=== PATIENT | female | born 2000 | race Caucasian/White ===

== ENCOUNTER 2022-04-11 19:40 | Emergency (ER) | payer MEDICAID ==
[~2022-04-11] VITALS: Ht 172.7 cm; Wt 58.1 kg
--- NOTE | 2022-04-11 20:40 | NUR ---
BIBSELF C/O FLU LIKE SYMPTOMS FELT SICK FOR THE PAST TWO WEEKS TESTED COVID (-) TODAY. PLACED IN RM 19. VITALS CHECKED
--- NOTE | 2022-04-11 21:00 | NUR ---
PATIENT IS ANXIOUS, SHE IS CRYING. CLAIMED THAT SHE IS CLAUSTROPHOEBIC AND WANT TO SEE MD IMMEDIATELY. SHE SAID SHE CANNOT STAND BEING IN CLOSED ROOM.MD MADE AWARE.
[2022-04-11] MEDS ORDERED: LIDOCAINE VISCOUS 2% UD 15 ML UDC MM ONE (21:30)
[2022-04-11] MEDS ORDERED: MAG HYDROX/AL HYDROX/SIMETH 30 ML UDC PO ONE (21:30)
[2022-04-11] MEDS ORDERED: ONDANSETRON 4 MG TAB.RAPDIS SL ONE (21:30)
[2022-04-11] MEDS ORDERED: KETOROLAC TROMETHAMINE INJ 60 MG/2 ML VIAL IM ONE (21:30)
--- NOTE | 2022-04-11 21:31 | NUR ---
COVID AND FLU COLLECTED AND SENT TO LAB
[2022-04-11] MEDS ORDERED: LIDOCAINE VISCOUS 2% UD 15 ML UDC ONE (21:51)
[2022-04-11] MEDS ORDERED: ONDANSETRON 4 MG TAB.RAPDIS ONE (21:51)
[2022-04-11] MEDS ORDERED: MAG HYDROX/AL HYDROX/SIMETH 30 ML UDC ONE (21:51)
[2022-04-11] MEDS ORDERED: KETOROLAC TROMETHAMINE INJ 30 MG/ML VIAL ONE (21:51)
[2022-04-11] MEDS ORDERED: OMEP40CA21 PO (21:54)
[2022-04-11] MEDS ORDERED: ONDA4TAB5 PO (21:54)
--- NOTE | 2022-04-11 21:59 | NUR ---
Patient discharged to home in stable condition. Written and verbal after care instructions given. Patient verbalizes understanding of instruction.
[2022-04-11 22:03] VITALS: BP 123/64
== END 2022-04-11 22:03 | disposition home or self-care (01) ==
LOC: ER 19:46
DX: K29.70 Gastritis, unspecified, without bleeding (principal); R68.89 Other general symptoms and signs; Z20.822 Contact with and (suspected) exposure to COVID-19
CPT/HCPCS: 99283; 87426; 96372; 87804; J1885; Q0162; C9803

== ENCOUNTER 2022-11-07 20:29 | Emergency (ER) | payer BC, OTHER ==
[~2022-11-07] VITALS: Ht 170.2 cm; Wt 59.9 kg
[~2022-11-07 20:29] MED LIST: OMEP40CA21 PO; ONDA4TAB5 PO
--- NOTE | 2022-11-07 21:12 | NUR ---
CALLED TO ER, LEFT AFTER TRIAGE
--- NOTE | 2022-11-07 21:30 | NUR ---
CALLED TO ER, LEFT AFTER TRIAGE.
[2022-11-07 22:49] VITALS: BP 107/59
== END 2022-11-07 22:50 | disposition left against medical advice (07) ==
LOC: ER 20:35
DX: R05.9 Cough, unspecified (principal); J02.9 Acute pharyngitis, unspecified; Z53.21 Procedure and treatment not carried out due to patient leaving prior to being seen by health care provider

== ENCOUNTER 2025-02-03 14:16 | Emergency (ER) | payer BC, OTHER ==
[~2025-02-03] VITALS: Ht 167.6 cm; Wt 56.7 kg
[2025-02-03] MEDS ORDERED: KETOROLAC TROMETHAMINE 15 MG/ML VIAL ONE ×2 (14:53→17:58)
[2025-02-03 14:58] LABS: PLATELET COUNT (AUTO) 196 K/uL (150-450); RED BLOOD CELL COUNT(AUTO) 4.59 MIL/uL (4.0-5.2); RED CELL DISTRIBUTION WIDTH 13.1 % (11.5-15.0); WHITE BLOOD COUNT (AUTO) 10.8 K/uL (4.3-11.0)
[2025-02-03 15:03] LABS: CALCIUM, SERUM 8.5 mg/dL (8.5-10.1); CREATININE 0.7 mg/dL (0.6-1.3); SODIUM SERUM 134.0 mmol/L (136-145); UREA NITROGEN, BLOOD 8.0 mg/dL (7-18)
[2025-02-03] MEDS: IV NS 0.9% 1,000 ML BAG IV ONE (15:07)
[2025-02-03] MEDS: PIPERACILLIN /TAZOBACTAM 3.375 G in IV D5W 50 ML IV ONE (15:08)
[2025-02-03] MEDS ORDERED: IOHEXOL-300 100 ML VIAL IV ONE (15:08)
[2025-02-03] MEDS ORDERED: IV NS 0.9% 250 ML IV ONE (15:09)
[2025-02-03] MEDS: KETOROLAC TROMETHAMINE 15 MG/ML VIAL IV ONE ×2 (15:26→18:01)
[2025-02-03 15:33] LABS: APPEARANCE,URINE CLEAR (CLEAR); BLOOD, URINE Trace-intact Ery/uL (NEGATIVE); LEUKOCYTE ESTERASE ,URINE Negative (NEGATIVE); NITRITE, URINE NEGATIVE (NEGATIVE); UGLUCOSE Negative (NEGATIVE)
[2025-02-03 15:34] LABS: ADD URINE CULTURE NO; SQUAMOUS EPITHELIAL CELL,UR Few /HPF (None Seen)
[2025-02-03] MEDS: LIDOCAINE 5% OINT 35.44 GM TUBE TP STA (17:40)
[2025-02-03 19:35] VITALS: BP 110/75; O2SAT 97
== END 2025-02-03 19:34 | disposition home or self-care (01) ==
LOC: ER 14:20
DX: N75.1 Abscess of Bartholin's gland (principal); N75.0 Cyst of Bartholin's gland; L08.9 Local infection of the skin and subcutaneous tissue, unspecified; R10.2 Pelvic and perineal pain; Z79.899 Other long term (current) drug therapy
CPT/HCPCS: 36415; 56405; 72193; 80048; 81001; 84702; 85025; 96365; 96375; 96376; 99285; J1885; J2543; J7030; J7050; J7060; Q9967

== ENCOUNTER 2025-03-06 17:00 | Emergency (ER) | payer BC ==
[~2025-03-06] VITALS: Ht 170.2 cm; Wt 59.0 kg
[2025-03-06] MEDS: IV NS 0.9% 1,000 ML BAG IV ONE (17:30)
[2025-03-06] MEDS: ACETAMINOPHEN ES 500 MG TABLET PO ONE (17:30)
[2025-03-06] MEDS: KETOROLAC TROMETHAMINE 15 MG/ML VIAL IV ONE (17:30)
[2025-03-06] MEDS: ONDANSETRON HCL/PF 4 MG/2 ML VIAL IVP ONE (17:30)
[2025-03-06] MEDS ORDERED: ACETAMINOPHEN ES 500 MG TABLET ONE (18:12)
[2025-03-06] MEDS ORDERED: KETOROLAC TROMETHAMINE 15 MG/ML VIAL ONE (18:12)
[2025-03-06] MEDS ORDERED: ONDANSETRON HCL/PF 4 MG/2 ML VIAL ONE (18:12)
[2025-03-06] MEDS ORDERED: IBUP-1953 PO (21:00)
[2025-03-06] MEDS ORDERED: LIDO30AD10 TP (21:00)
[2025-03-06] MEDS ORDERED: CYCL15CA23 PO (21:02)
[2025-03-06] MEDS ORDERED: MUPI22OI7 TP (21:18)
[2025-03-06] MEDS ORDERED: HYDROCODONE/APAP 5/325MG TABLET ONE (21:19)
[2025-03-06] MEDS: HYDROCODONE/APAP 5/325MG TABLET PO ONE (21:25)
[2025-03-06 21:32] VITALS: BP 128/74; TEMP 98.2; O2SAT 97
== END 2025-03-06 21:32 | disposition home or self-care (01) ==
LOC: ER 17:05
DX: S90.112A Contusion of left great toe without damage to nail, initial encounter (principal); S70.02XA Contusion of left hip, initial encounter; S00.81XA Abrasion of other part of head, initial encounter; S60.512A Abrasion of left hand, initial encounter; S80.212A Abrasion, left knee, initial encounter; S80.211A Abrasion, right knee, initial encounter; M25.511 Pain in right shoulder; R51.9 Headache, unspecified; F19.10 Other psychoactive substance abuse, uncomplicated; R10.9 Unspecified abdominal pain; Z79.1 Long term (current) use of non-steroidal anti-inflammatories (NSAID); Z79.899 Other long term (current) drug therapy; Y04.0XXA Assault by unarmed brawl or fight, initial encounter; Y93.89 Activity, other specified; Y92.89 Other specified places as the place of occurrence of the external cause; Y99.8 Other external cause status
CPT/HCPCS: 99285; 96374; 76700; 70450; 71045; 96361; 96375; 73610; 73564; 73030; 73110; J1885; J2405; J7030